=== PATIENT | male | born 1985 ===

== ENCOUNTER 2018-10-22 16:16 | Emergency (ER) | payer OTHER ==
[2018-10-22 16:46] VITALS: BP 123/80; PULSE 76; RESP 14; TEMP 98.5; O2SAT 99
--- NOTE | 2018-10-22 19:06 | ED PDOC ---
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 Patient states it has gotten progressively larger in size. He denies fever or discharge. PMD: none provided Past Medical History Reviewed: Historical Data, Nursing Documentation, Vital Signs Vital Signs: Last Vital Signs Temp 98.5 F 10/22/18 16:45 Pulse 76 10/22/18 16:45 Resp 14 10/22/18 16:45 BP 123/80 10/22/18 16:45 Pulse Ox 99 10/22/18 16:45 - Medical History PMH: No Chronic Diseases - Surgical History Surgical History: No Surg Hx - Family History Family History: States: Unknown Family Hx - Allergies Allergies/Adverse Reactions: Allergies Allergy/AdvReac Type Severity Reaction Status Date / Time No Known Allergies Allergy Verified 10/22/18 16:49 Review of Systems ROS Statement: Except As Marked, All Systems Reviewed And Found Negative Constitutional: Negative for: Fever Skin: Positive for: Other (Painful lump on left side of abdomen without discharge) Physical Exam - Reviewed Nursing Documentation Reviewed: Yes Vital Signs Reviewed: Yes - Physical Exam Appears: Positive for: No Acute Distress Cardiovascular/Chest: Positive for: Other (Left axillary side of the left lower quadrant: small pea size nonerythematous, nontender, nonfluctuant mobile mass. No break in skin integrity, no vesicles, and no fluctuance.) Neurologic/Psych: Positive for: Alert, Oriented - ECG O2 Sat by Pulse Oximetry: 99 (RA) Pulse Ox Interpretation: Normal Medical Decision Making Medical Decision Making: Initial Impression: Painful mass Initial Plan: Patient advised to follow up with [facility] for surgery evaluation. Scribe Attestation: Documented by Terrance Diallo acting as a scribe for [employer] Provider Scribe Attestation: All medical record entries made by the Scribe were at my direction and personally dictated by me. I have reviewed the chart and agree that the record accurately reflects my personal performance of the history, physical exam, medical decision making, and the department course for this patient. I have also personally directed, reviewed, and agree with the discharge instructions and disposition. Disposition - Clinical Impression Clinical Impression: Mass - Patient ED Disposition Is Patient to be Admitted: No - Disposition Disposition: Routine/Home Disposition Time: 18:00 Condition: STABLE Additional Instructions: YRIS EDGE, thank you for letting us take care of you today. Your provider was Nicholas Gomez MD and you were treated for LUMP ON BACK. The emergency medical care you received today was directed at your acute symptoms. If you were prescribed any medication, please fill it and take as directed. It may take several days for your symptoms to resolve. Return to the Emergency Department if your symptoms worsen, do not improve, or if you have any other problems. Please contact your doctor or call one of the physicians/clinics you have been referred to that are listed on the Patient Visit Information form that is included in your discharge packet. Bring any paperwork you were given at discharge with you along with any medications you are taking to your follow up visit. Our treatment cannot replace ongoing medical care by a primary care pro vider outside of the emergency department. Thank you for allowing the [facility] team to be part of your care today. If you had an X-Ray or CT scan: A Radiologist will review the ED reading if any change in treatment is needed we will contact you. If you had a blood, urine, or wound culture: It will take several days for the results, if any change in treatment is needed we will contact you. If you had an STI test: It will take 48 hours for the results. Please call after 1 week if you have not heard back. Instructions: [place] Forms: [employer] ([employer]) Print Language: [place]
== END 2018-10-22 18:37 | disposition home or self-care (01) ==
LOC: H.ER 16:16
DX: R22.2 Localized swelling, mass and lump, trunk (principal)